=== PATIENT | male | born 1965 | race African-American/Black ===

== ENCOUNTER 2020-07-08 11:36 | Observation (INO) ==
[2020-07-08 12:05] LABS: Basophils # 0.1 10*3/uL (0.0-0.2); Basophils % 0.7 % (0.0-0.8); Eosinophils # 0.2 10*3/uL (0.0-0.87); Eosinophils % 2.9 % (0.00-10.9); Hematocrit 38.3 VOL% (42.0-52.0); Hemoglobin 11.8 GM/DL (14.0-18.0); Immature Granulocytes % 0.3 %; Immature Granulocytes Absolute 0.02 #; Lymphocytes # 2.4 10*3/uL (1.4-4.0); Lymphocytes % 33.3 % (21.2-54.2); Mean Corpuscular HGB Conc 30.8 GM/DL (32-36); Mean Corpuscular Volume 70.5 FL (87-102); Mean Platelet Volume 9.9 FL (9.6-12.0); Monocytes % 8.6 % (1.7-12.7); Neutrophils % 54.2 % (38.7-73.9); Platelet Count 430 T/CUMM (130-400); Red Blood Count 5.43 MC/CUMM (3.8-5.5); Red Cell Distribution Width 16.1 % (9.3-17.3); White Blood Count 7.3 T/CUMM (4-12)
[2020-07-08 12:25] LABS: Bilirubin,Total 0.6 MG/DL (0.2-1.0); Calcium 8.7 MG/DL (8.5-10.1); Osmolality,Calculated 276.4 MOS/KG (273-304); Potassium 3.8 MMOL/L (3.5-5.1); Total Protein 7.3 G/DL (6.4-8.2)
[2020-07-08 12:33] LABS: Anisocytosis 2+; Eosinophils 4 % (0-10); Hypochromasia 1+; Lymphocytes 36 % (20-55); Microcytosis 2+; Segmented Neutrophils 56 % (50-85); Total Cells Counted 100
[2020-07-08 12:34] LABS: Burr Cells 1+; Elliptocytes 1+; Platelet Estimate Normal; Poikilocytosis 1+
[2020-07-08] MEDS ORDERED: NITROGLYCERIN SL 0.4 MG TABLET SL PRN ×2 (16:06→17:04)
[2020-07-08] MEDS ORDERED: ASPIRIN CHEW 81 MG TABLET PO ONE (17:04)
[2020-07-08] MEDS ORDERED: ALUM/MAG/SIMETH/LIDO VISC 1:1 30 ML BOTTLE PO PRN (17:04)
[2020-07-08] MEDS ORDERED: DEXTROSE 50% 25 GM/50 ML VIAL IV PRN (17:04)
[2020-07-08] MEDS ORDERED: GLUCAGON 1 MG VIAL IM PRN (17:04)
[2020-07-08] MEDS ORDERED: ALUM/MAG/SIMETH/LIDO VISC 1:1 30 ML BOTTLE PO ONE (17:13)
[2020-07-08] MEDS ORDERED: MORPHINE 4 MG/1 ML VIAL IV PRN (17:13)
[2020-07-08] MEDS ORDERED: ONDANSETRON 4 MG/2 ML VIAL IV PRN (17:14)
[2020-07-08 17:43] LABS: Troponin I < 0.015 NG/ML (0.00-0.045)
[2020-07-08] MEDS ORDERED: ENOXAPARIN 120 MG/0.8 ML SYRINGE SUBCUT SCH (18:00)
[2020-07-08] MEDS: PANTOPRAZOLE 40 MG TABLET PO SCH (18:43)
[2020-07-08] MEDS: carvediloL 3.125 MG TABLET PO SCH (20:36)
[2020-07-08] MEDS ORDERED: SIMVASTATIN 20 MG TABLET PO SCH (21:00)
[2020-07-09 00:47] LABS: Troponin I < 0.015 NG/ML (0.00-0.045)
[2020-07-09 04:16] LABS: Basophils # 0.1 10*3/uL (0.0-0.2); Basophils % 0.7 % (0.0-0.8); Eosinophils # 0.2 10*3/uL (0.0-0.87); Eosinophils % 2.7 % (0.00-10.9); Hematocrit 36.9 VOL% (42.0-52.0); Hemoglobin 11.2 GM/DL (14.0-18.0); Immature Granulocytes % 0.1 %; Immature Granulocytes Absolute 0.01 #; Lymphocytes # 3.5 10*3/uL (1.4-4.0); Lymphocytes % 42.7 % (21.2-54.2); Mean Corpuscular HGB Conc 30.4 GM/DL (32-36); Mean Corpuscular Volume 71.1 FL (87-102); Mean Platelet Volume 9.5 FL (9.6-12.0); Monocytes % 8.3 % (1.7-12.7); Neutrophils % 45.5 % (38.7-73.9); Platelet Count 400 T/CUMM (130-400); Red Blood Count 5.19 MC/CUMM (3.8-5.5); White Blood Count 8.1 T/CUMM (4-12)
[2020-07-09 04:32] LABS: Calcium 8.6 MG/DL (8.5-10.1); Osmolality,Calculated 276.5 MOS/KG (273-304)
[2020-07-09 04:35] LABS: VLDL CHOLESTEROL 19.4 MG/DL
[2020-07-09 05:21] LABS: Eosinophils 4 % (0-10); Hypochromasia Slight; Lymphocytes 44 % (20-55); Microcytosis 1+; Platelet Estimate Increased; Segmented Neutrophils 51 % (50-85); Total Cells Counted 100
[2020-07-09] MEDS: carvediloL 3.125 MG TABLET PO SCH (08:43)
[2020-07-09] MEDS: PANTOPRAZOLE 40 MG TABLET PO SCH (08:43)
[2020-07-09] MEDS ORDERED: hydroCHLOROthiazide 25 MG TABLET PO SCH (09:00)
[2020-07-09 09:05] VITALS: BP 115/72
== END 2020-07-09 10:41 | disposition home or self-care (01) ==
LOC: N.ED 11:36 → N.EDINP 11:36 → N.TELES 18:56
PROVIDERS: ADMIT Internal Medicine; ATTEND Internal Medicine